=== PATIENT | female | born 1985 | race Caucasian/White ===

== ENCOUNTER 2020-09-22 18:39 | Emergency (ER) | payer OTHER ==
[~2020-09-22] VITALS: Ht 160 cm; Wt 78.0 kg
[~2020-09-22 18:39] MED LIST: OSEL75CA PO; TUSSI-PRES LIQ118 ML PO
== END 2020-09-22 20:33 | disposition home or self-care (01) ==
LOC: ER 18:39
DX: M54.2 Cervicalgia (principal); M54.5 Low back pain

== ENCOUNTER 2021-06-30 21:41 | Emergency (ER) | payer OTHER ==
[~2021-06-30] VITALS: Ht 162.6 cm; Wt 95.3 kg
[2021-06-30] MEDS ORDERED: WELLBUTRIN SR100 MG (21:55)
== END 2021-06-30 22:15 | disposition home or self-care (01) ==
LOC: ER 21:41
DX: S61.452A Open bite of left hand, initial encounter (principal); W54.0XXA Bitten by dog, initial encounter; Y93.89 Activity, other specified; Y92.018 Other place in single-family (private) house as the place of occurrence of the external cause; Y99.8 Other external cause status